=== PATIENT | female | born 1995 | race Caucasian/White ===

== ENCOUNTER → 2016-08-07 03:25 | Observation (INO) ==
[2016-08-07 02:47] LABS: Bilirubin,Urine Negative (Negative); Blood,Urine Small (Negative); Clarity,Urine Cloudy (Clear); Color,Urine Yellow (Yellow); Glucose,Urine (UA) Normal (Normal); Ketones,Urine Negative (Negative); Leukocyte Esterase,Urine Large (Negative); Nitrite,Urine Negative (Negative); PH,Urine 6.5 pH Units (5.0-8.0); Protein,Urine Negative (Neg-Trace); Specific Gravity,Urine 1.019 (1.010-1.025); Urobilinogen,Urine Normal (Normal)
[2016-08-07 02:50] LABS: Bacteria,Urine Many per hpf (None-Few); Hyaline Casts,Urine None Seen per lpf (None-Few); RBC,Urine 0-3 per hpf (0-3); Squamous Epithelial Cell,Urine Many per lpf (None-Few); WBC,Urine 50-100 per hpf (0-3)
--- NOTE | 2016-08-08 12:13 | OB/GYN Progress Note ---
Date of Encounter: 08/07/16 Time of Encounter: 02:30 - Assessment and Plan (1) 30 weeks gestation of Status: Acute (2) UTI (urinary tract infection) Status: Acute Treated with Macrobid and sent home to followup as scheduled. Qualifiers: Urinary tract infection type: acute cystitis Hematuria presence: with hematuria Qualified Code(s): N30.01 - Acute cystitis with hematuria Objective - Labs Labs: Abnormal lab results Urine Clarity Cloudy (Clear) A 08/07/16 02:20 Urine Blood Small (Negative) H 08/07/16 02:20 Ur Leukocyte Esterase Large (Negative) H 08/07/16 02:20 Urine Microscopic WBC 50-100 per hpf (0-3) H 08/07/16 02:20 Ur Squamous Epith Cells Many per lpf (None-Few) H 08/07/16 02:20 Urine Bacteria Many per hpf (None-Few) H 08/07/16 02:20 Ur Culture Indicated? YES (NO) A 08/07/16 02:20
== END | disposition home or self-care (01) ==
LOC: 1NENULAB
PROVIDERS: ADMIT Obstetrics & Gynecology; ATTEND Obstetrics & Gynecology